=== PATIENT | female | born 2000 | race Caucasian/White ===

== ENCOUNTER 2023-07-04 11:52 | Emergency (ER) | payer OTHER ==
[2023-07-04 12:18] VITALS: BP 172/77; O2SAT 100
--- NOTE | 2023-07-04 13:13 | Ultrasound Report ---
PROCEDURE: Duplex Ext Veins Right INDICATIONS: calf pain TECHNIQUE: Real-time imaging, as well as color and pulse Doppler interrogation, were performed of the lower extr emity deep veins from the inguinal ligament to the popliteal fossa. Attempted visualization of the ca lf veins was performed. COMPARISON: None. FINDINGS: The deep veins are normally compressible, and free of intraluminal thrombus. Color and pu lse Doppler demonstrate normal phasic intraluminal flow. There is normal augmentation response to di stal compression maneuver. IMPRESSION: No deep venous thrombosis of the visualized lower extremity. Reviewed by: Radha Myrick MD on 07/04/2023 1:12 PM PDT Approved by: Radha Myrick MD on 07/04/2023 1:12 PM PDT Station ID: [id number]
--- NOTE | 2023-07-04 13:57 | ED Physician Documentation ---
History of Present Illness - Stated complaint Stated Complaint: RT LEG PX - Chief complaint Chief Complaint: Ext Problem - History obtained from History obtained from: Patient - History of Present Illness Pain level max: 2 Pain level now: 2 - Additonal information Additional information: Patient is a 22-year-old female who presents to the emergency department with right medial knee pain. Worse with movement, better with rest. She states she recently drove from [place]. Concerned about potential blood clot in the leg. No numbness or tingling. No redness. No history of blood clots. Does not smoke. Does not recall any specific injury. Review of Systems Constitutional: denies: Fever, Chills Throat: denies: Sore throat Cardiac: denies: Chest pain / pressure, Palpitations Respiratory: denies: Dyspnea, Cough, Wheezing GI: denies: Vomiting PD PAST MEDICAL HISTORY - Past Medical History Past Medical History: No Cardiovascular: None Respiratory: None Neuro: None Endocrine/Autoimmune: None GI: None HATCH BOSS: None : None HEENT: None Psych: None Musculoskeletal: None Derm: None - Past Surgical History Past Surgical History: No - Present Medications Home Medications: Ambulatory Orders Medication Instructions Recorded Confirmed No Known Home Medications 07/04/23 07/04/23 - Allergies Allergies/Adverse Reactions: Allergies Allergy/AdvReac Type Severity Reaction Status Date / Time No Known Drug Allergies Allergy Verified 07/04/23 12:12 - Social History Does the pt smoke?: No Smoking Status: Never smoker Does the pt drink ETOH?: No Does the pt have substance abuse?: No - Immunizations Immunizations are current?: Yes PD ED PE NORMAL - Vitals Vital signs reviewed: Yes - General General: Alert and oriented X 3, No acute distress - HEENT HEENT: Moist mucous membranes - Neck Neck: Supple, no meningeal sign - Cardiac Cardiac: RRR, Strong equal pulses - Respiratory Respiratory: No respiratory distress, Clear bilaterally - Derm Derm: Warm and dry - Extremities Extremities: No edema, No calf tenderness / cord, Other (Normal examination of the right knee. No joint effusion. No bony tenderness. ACL, MCL, PCL, LCL are intact.) - Neuro Neuro: Alert and oriented X 3 - Psych Psych: Normal mood, Normal affect Results - Vitals Vitals: Vital Signs - 24 hr 07/04/23 12:13 Temperature 36.3 C L Heart Rate 82 Respiratory 16 Rate Blood Pressure 172/77 H O2 Saturation 100 Oxygen O2 Source Room air - Rads (name of study) Duplex ultrasound right lower extremity Relevant Findings:: Final report received, See rad report PD Medical Decision Making - ED course Complexity details: reviewed results, re-evaluated patient, considered differential, d/w patient ED course: No DVT on ultrasound. No bony tenderness. No joint effusion. Full range of motion of the knee without pain. Possible muscle strain? No crepitus. No redness, streaking. Ambulating without a limp. We will continue supportive care and have her follow-up with her doctor. Patient counseled regarding signs and symptoms for which I believe and urgent re-evaluation would be necessary. Patient with good understanding of and agreement to plan and is comfortable going home at this time This document was made in part using voice recognition software. While efforts are made to proofread this document, sound alike and grammatical errors may occur. Departure - Departure Disposition: 01 Home, Self Care Clinical Impression: Leg pain Qualifiers: Laterality: right Qualified Code(s): M79.604 - Pain in right leg Condition: Good Instructions: ED Strain Muscle Ext Follow-Up: KALINA DALY NP [Primary Care Provider] - Within 1 week Comments: Your ultrasound does not show any evidence of blood clot in your leg. Please follow-up with your doctor if you are still having symptoms in 1 week. Please return if you worsen. I would continue Motrin and Tylenol as needed for any pain. I suspect that this will improve over the next few days. Forms: PCP List Discharge Date/Time: 07/04/23 14:04
== END 2023-07-04 14:04 | disposition home or self-care (01) ==
LOC: ED 11:52
DX: M79.604 Pain in right leg (principal)
CPT/HCPCS: 99283; 99284

== ENCOUNTER 2023-07-21 12:31 | Outpatient (CLI) | payer OTHER ==
--- NOTE | 2023-07-24 08:10 | Ultrasound Report ---
LIMITED ULTRASOUND OF LEFT BREAST: 07/21/2023 CLINICAL: Pt. feels painful palp at left breast 2:00. No prior exams were available for comparison. Color flow ultrasound of the left breast 2 o'clock region was performed on the areas of interest. Gr ay scale images of the real-time examination were reviewed. IMPRESSION: NEGATIVE There is no sonographic evidence of malignancy. There is no sonographic abnormality seen in the left breast to correspond with the palpable abnormali ty and pain, however, clinical followup is recommended. This exam was interpreted at Station ID: [id number]. Electronically Signed By: Gretchen Cunningham M.D. lk/:07/21/2023 12:50:56 letter sent: No_Letter Ultrasound BI-RADS: 1 Negative BI-RADS CATEGORY: (1) - 1 Unspecified - other recall n/a LATERALITY: (B)
== END 2023-07-21 12:32 | disposition home or self-care (01) ==
LOC: DI 12:31
PROVIDERS: ATTEND Nurse Practitioner Family
DX: N63.21 Unspecified lump in the left breast, upper outer quadrant (principal)

== ENCOUNTER 2023-11-30 21:23 | Outpatient (CLI) | payer OTHER ==
--- NOTE | 2023-12-01 14:08 | Ultrasound Report ---
PROCEDURE: Soft Tissue Head or Neck INDICATIONS: NECK PAIN EDEMA TECHNIQUE: Soft tissue ultrasound. COMPARISON: None FINDINGS: At the area of concern in the right neck, small lymph nodes are noted with AP diameter of less than 8 mm. Preserved fatty hilum and vascularity. Visualized thyroid grossly normal IMPRESSION: Small right neck normal lymph nodes without adenopathy Reviewed by: Tha Goff MD on 12/01/2023 1:07 PM AKDT Approved by: Tha Goff MD on 12/01/2023 1:07 PM AKDT Station ID: [id number]
== END 2023-11-30 21:24 | disposition home or self-care (01) ==
LOC: DI 21:23
PROVIDERS: ATTEND Nurse Practitioner Family
DX: M54.2 Cervicalgia (principal)